=== PATIENT | male | born 1995 | race Asian ===

== ENCOUNTER 2017-01-06 22:53 | Emergency (ER) | payer SELFPAY ==
[~2017-01-06] VITALS: Ht 180.3 cm; Wt 61.6 kg
[2017-01-06 22:55] VITALS: BP 118/78
== END 2017-01-06 23:45 | disposition home or self-care (01) ==
LOC: ED 23:39
DX: M26.601 Right temporomandibular joint disorder, unspecified (principal)
CPT/HCPCS: 99283